=== PATIENT | female | born 1980 | race Caucasian/White ===

== ENCOUNTER 2020-07-23 12:02 | Emergency (ER) | payer MEDICAID ==
[~2020-07-23] VITALS: Ht 149.9 cm; Wt 56.2 kg
[2020-07-23 12:05] VITALS: BP 119/71
--- NOTE | 2020-07-23 12:07 | NUR ---
Patient ambulated to bed 11. RN evaluating the patient at bedside.
--- NOTE | 2020-07-23 12:19 | NUR ---
Dr. Amaya is evaluating the patient at bedside.
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
--- NOTE | 2020-07-23 12:29 | NUR ---
Patient discharged with v/s stable. Written and verbal after care instructions given and explained. Patient verbalized understanding. Ambulatory with steady gait. All questions addressed prior to discharge. Advised to follow up with PMD.
[2020-07-23 12:31] VITALS: BP 119/71
== END 2020-07-23 12:27 | disposition home or self-care (01) ==
LOC: MED 12:02
DX: K21.9 Gastro-esophageal reflux disease without esophagitis (principal); Z88.0 Allergy status to penicillin; Z88.8 Allergy status to other drugs, medicaments and biological substances; Z76.0 Encounter for issue of repeat prescription
CPT/HCPCS: 99281